=== PATIENT | male | born 1935 | race Caucasian/White ===

== ENCOUNTER 2021-03-08 00:36 | Inpatient (IN) | payer MEDICARE ==
[2021-03-08] MEDS ORDERED: Potassium Chloride 20 MEQ/100 ML PREMIX BAG ONE (01:26)
[2021-03-08 02:21] LABS: Albumin 3.7 g/dL (3.4-4.8)
[2021-03-08 02:22] LABS: Chloride 95 mmol/L (98-107); Sodium 136 mmol/L (136-145)
[2021-03-08 02:24] LABS: Globulin 2.8 g/dL (2.4-3.5); Protein, Total 6.5 g/dL (5.8-8.1)
[2021-03-08 02:25] LABS: Anion Gap 8 mmol/L (10-20); Bilirubin, Total 2.1 mg/dL (0.2-1.2); Carbon Dioxide 36 mmol/L (23-31)
[2021-03-08 02:26] LABS: Alkaline Phosphatase 95 U/L (40-110)
[2021-03-08 02:27] LABS: Calc. Creatinine Clearance 0 mL/min (70-130)
[2021-03-08 02:28] LABS: BUN (Urea Nitrogen) 18 mg/dL (8.4-25.7)
[2021-03-08 02:29] LABS: ALT (SGPT) 10 U/L (8-55); AST (SGOT) 24 U/L (5-34); Magnesium 1.2 mg/dL (1.6-2.6)
[2021-03-08 02:35] LABS: Glucose 211 mg/dL (83-110)
[2021-03-08 02:41] LABS: Calcium 14.7 mg/dL (7.8-10.44)
[2021-03-08] MEDS ORDERED: Acetaminophen 650 MG Suppository PR PRN (03:02)
[2021-03-08] MEDS ORDERED: Ondansetron PF 4 MG/2 ML Vial IVP PRN (03:02)
[2021-03-08] MEDS ORDERED: Magnesium 2 GM/50 ML BAG (IN WATER) ONE (03:09)
[2021-03-08 03:22] LABS: Band 5 % (5-11); Hemoglobin 15.3 g/dL (14.0-18.0); Lymphocytes 71 % (21-51); MDiff Complete? YES; Mean Corpuscular HGB CONC 34.1 g/dL (32.0-36.0); Mean Corpuscular Hemoglobin 30.4 pg (27.0-31.0); Mean Corpuscular Volume 89.3 fL (78.0-98.0); Mean Platelet Volume 12.4 fL (7.4-10.4); Monocytes 5 % (0-10); Neutrophil 19 % (42-75); Platelet Count 141 thou/uL (130-400); Red Blood Cell (RBC) Count 5.04 mill/uL (4.70-6.10); Reflex for Review?? YES; White Blood Cell (WBC) Count 44.5 thou/uL (4.8-10.8)
[2021-03-08] MEDS ORDERED: Sodium Chloride 0.9% 1,000 ML IV SCH (03:30)
[2021-03-08] MEDS ORDERED: Dextrose 5% in Water 1,000 ML IV PRN (03:52)
[2021-03-08] MEDS ORDERED: HumaLOG 300 UNITS/3 ML VIAL SC PRN (03:52)
[2021-03-08] MEDS ORDERED: Dextrose 50% Abboject 50 ML SYRINGE SLOW IVP PRN (03:52)
[2021-03-08] MEDS: Sodium Chloride 0.9% 1,000 ML IV SCH ×4 (03:56→20:29)
[2021-03-08] MEDS ORDERED: Calcitonin,Salmon,Synthetic 200 UNITS/ML MDV SC SCH (04:00)
[2021-03-08] MEDS ORDERED: Magnesium Sulfate 4 GM in Sodium Chloride 0.9% 250 ML 250 ML IVPB SCH (04:00)
[2021-03-08] MEDS ORDERED: Zoledronic Acid 4 MG in Sodium Chloride 0.9% 100 ML IVPB SCH (04:00)
[2021-03-08 04:30] LABS: ALT (SGPT) 11 U/L (8-55); AST (SGOT) 23 U/L (5-34); Albumin 3.5 g/dL (3.4-4.8); Alkaline Phosphatase 90 U/L (40-110); Anion Gap 10 mmol/L (10-20); BUN (Urea Nitrogen) 17 mg/dL (8.4-25.7); Calc. Creatinine Clearance 0 mL/min (70-130); Carbon Dioxide 30 mmol/L (23-31); Chloride 98 mmol/L (98-107); Globulin 2.7 g/dL (2.4-3.5); Glucose 209 mg/dL (83-110); Protein, Total 6.2 g/dL (5.8-8.1); Sodium 135 mmol/L (136-145)
[2021-03-08 04:38] LABS: Calcium 13.9 mg/dL (7.8-10.44)
[2021-03-08 04:53] LABS: Hemoglobin 14.8 g/dL (14.0-18.0); Mean Corpuscular HGB CONC 34.1 g/dL (32.0-36.0); Mean Corpuscular Hemoglobin 30.2 pg (27.0-31.0); Mean Corpuscular Volume 88.6 fL (78.0-98.0); Mean Platelet Volume 11.8 fL (7.4-10.4); Platelet Count 130 thou/uL (130-400); RBC Distribution Width 13.4 % (11.5-14.5); Red Blood Cell (RBC) Count 4.91 mill/uL (4.70-6.10); Reflex for Review?? YES; White Blood Cell (WBC) Count 47.5 thou/uL (4.8-10.8)
[2021-03-08 05:13] LABS: SARS-CoV-2 NAA Rapid Test Not Detected (NotDetected)
[2021-03-08] MEDS ORDERED: HumaLOG 300 UNITS/3 ML VIAL ONE (05:42)
[2021-03-08] MEDS: HumaLOG 300 UNITS/3 ML VIAL SC PRN ×2 (05:47→14:24)
[2021-03-08 06:13] LABS: Lymphocytes 58 % (21-51); MDiff Complete? YES; Monocytes 3 % (0-10); Neutrophil 39 % (42-75); Schistocytes MODERATE= 6-15 cells (100X) (0-1/hpf)
[2021-03-08 06:30] LABS: Anion Gap 12 mmol/L (10-20); BUN (Urea Nitrogen) 15 mg/dL (8.4-25.7); Calc. Creatinine Clearance 68 mL/min (70-130); Carbon Dioxide 29 mmol/L (23-31); Chloride 98 mmol/L (98-107); Glucose 216 mg/dL (83-110); Potassium 3.3 mmol/L (3.5-5.1); Sodium 136 mmol/L (136-145)
[2021-03-08 06:33] LABS: Calcium 13.5 mg/dL (7.8-10.44)
[2021-03-08] MEDS ORDERED: Senokot S 8.6-50 MG TAB PO PRN (07:21)
[2021-03-08] MEDS ORDERED: Ondansetron ODT 4 MG TAB PO PRN (07:21)
[2021-03-08] MEDS ORDERED: GUAIFENESIN SF SOLN 200 MG/10 ML UDCUP PO PRN (07:21)
[2021-03-08] MEDS ORDERED: Sodium Chloride 0.65% Nasal 44 ML BOT EA NARE PRN (07:21)
[2021-03-08] MEDS ORDERED: Bisacodyl 5 MG TAB PO PRN (07:21)
[2021-03-08] MEDS ORDERED: Artificial Tear Sol 15 ML BOT EA EYE PRN (07:21)
[2021-03-08] MEDS ORDERED: Hydrocerin (Eucerin) Cream 120 gm Jar TOP PRN (07:21)
[2021-03-08] MEDS ORDERED: Loratadine 10 MG TAB PO PRN (07:21)
[2021-03-08] MEDS ORDERED: Cepastat Lozenges 1 LOZ PO PRN (07:21)
[2021-03-08 08:26] LABS: Anion Gap 10 mmol/L (10-20); BUN (Urea Nitrogen) 15 mg/dL (8.4-25.7); Calc. Creatinine Clearance 68 mL/min (70-130); Carbon Dioxide 30 mmol/L (23-31); Chloride 99 mmol/L (98-107); Glucose 208 mg/dL (83-110); Potassium 3.1 mmol/L (3.5-5.1); Sodium 136 mmol/L (136-145)
[2021-03-08 08:32] LABS: Calcium 13.2 mg/dL (7.8-10.44)
[2021-03-08] MEDS: Pantoprazole 40 MG VIAL IVP SCH (09:00)
[2021-03-08] MEDS ORDERED: Pantoprazole 40 MG VIAL ONE (09:32)
[2021-03-08] MEDS ORDERED: Enoxaparin Sodium 40 MG/0.4 ML SYRINGE ONE (12:22)
[2021-03-08] MEDS: Enoxaparin Sodium 40 MG/0.4 ML SYRINGE SC SCH (12:24)
[2021-03-08] MEDS: Furosemide 20 MG/2 ML VIAL SLOW IVP SCH (14:14)
[2021-03-08] MEDS ORDERED: Furosemide 20 MG/2 ML VIAL ONE (14:15)
[2021-03-08] MEDS ORDERED: Melatonin 3 MG TAB PO SCH (23:30)
[2021-03-09] MEDS: Sodium Chloride 0.9% 1,000 ML IV SCH ×6 (01:42→22:06)
[2021-03-09 04:31] LABS: Magnesium 1.4 mg/dL (1.6-2.6)
[2021-03-09 04:33] LABS: ALT (SGPT) 11 U/L (8-55); AST (SGOT) 15 U/L (5-34); Albumin 3.4 g/dL (3.4-4.8); Alkaline Phosphatase 83 U/L (40-110); Anion Gap 10 mmol/L (10-20); BUN (Urea Nitrogen) 15 mg/dL (8.4-25.7); Calc. Creatinine Clearance 84 mL/min (70-130); Calcium 11.8 mg/dL (7.8-10.44); Carbon Dioxide 30 mmol/L (23-31); Chloride 101 mmol/L (98-107); Globulin 2.6 g/dL (2.4-3.5); Glucose 189 mg/dL (83-110); Sodium 138 mmol/L (136-145)
[2021-03-09 04:34] LABS: Hemoglobin 15.5 g/dL (14.0-18.0); Mean Corpuscular HGB CONC 32.5 g/dL (32.0-36.0); Mean Corpuscular Volume 89.1 fL (78.0-98.0); Mean Platelet Volume 11.8 fL (7.4-10.4); Platelet Count 130 thou/uL (130-400); RBC Distribution Width 13.2 % (11.5-14.5); Red Blood Cell (RBC) Count 5.36 mill/uL (4.70-6.10); White Blood Cell (WBC) Count 36.8 thou/uL (4.8-10.8)
[2021-03-09 04:39] LABS: Phosphorus 1.1 mg/dL (2.3-4.7)
[2021-03-09 04:40] LABS: Potassium 2.8 mmol/L (3.5-5.1)
[2021-03-09] MEDS ORDERED: Electrolyte Replacement Protocol 1 EACH FS PRN (05:15)
[2021-03-09] MEDS ORDERED: Potassium Chloride 40 MEQ in Sodium Chloride 0.9% 250 ML 250 ML IVPB SCH (05:15)
[2021-03-09 05:55] LABS: Band 2 % (5-11); Large Platelets SLIGHT; Lymphocytes 59 % (21-51); MDiff Complete? YES; Monocytes 1 % (0-10); Neutrophil 36 % (42-75); Platelet Morphology Comment Appears Adequate; Reactive Lymphocytes 2 % (0-10)
[2021-03-09] MEDS: Furosemide 20 MG/2 ML VIAL SLOW IVP SCH ×2 (06:03→14:09)
[2021-03-09] MEDS: Magnesium 2 GM/50 ML 2 GM in Premix Bag 1 BAG IVPB SCH ×2 (06:30→08:35)
[2021-03-09] MEDS ORDERED: Potassium Phosphate 30 MMOL in Sodium Chloride 0.9% 250 ML 250 ML IVPB SCH (08:00)
[2021-03-09] MEDS: Enoxaparin Sodium 40 MG/0.4 ML SYRINGE SC SCH (08:35)
[2021-03-09] MEDS: Pantoprazole 40 MG VIAL IVP SCH (08:35)
[2021-03-09 14:14] LABS: Magnesium 1.9 mg/dL (1.6-2.6); Phosphorus 2.3 mg/dL (2.3-4.7)
[2021-03-09 14:26] LABS: Potassium 3.3 mmol/L (3.5-5.1)
[2021-03-10 04:39] LABS: Hemoglobin 15.8 g/dL (14.0-18.0); Mean Corpuscular HGB CONC 32.3 g/dL (32.0-36.0); Mean Corpuscular Hemoglobin 28.9 pg (27.0-31.0); Mean Corpuscular Volume 89.5 fL (78.0-98.0); Mean Platelet Volume 11.9 fL (7.4-10.4); Platelet Count 120 thou/uL (130-400); RBC Distribution Width 13.3 % (11.5-14.5); Red Blood Cell (RBC) Count 5.48 mill/uL (4.70-6.10); White Blood Cell (WBC) Count 25.5 thou/uL (4.8-10.8)
[2021-03-10 05:09] LABS: Anion Gap 12 mmol/L (10-20); BUN (Urea Nitrogen) 14 mg/dL (8.4-25.7); Calc. Creatinine Clearance 88 mL/min (70-130); Carbon Dioxide 27 mmol/L (23-31); Chloride 104 mmol/L (98-107); Glucose 159 mg/dL (83-110); Potassium 2.9 mmol/L (3.5-5.1); Sodium 140 mmol/L (136-145)
[2021-03-10 05:10] LABS: ALT (SGPT) 10 U/L (8-55); AST (SGOT) 9 U/L (5-34); Alkaline Phosphatase 71 U/L (40-110); Calcium 9.9 mg/dL (7.8-10.44); Globulin 2.4 g/dL (2.4-3.5); Protein, Total 5.4 g/dL (5.8-8.1)
[2021-03-10 05:15] LABS: Magnesium 1.5 mg/dL (1.6-2.6); Phosphorus 1.3 mg/dL (2.3-4.7)
[2021-03-10] MEDS ORDERED: Potassium Chloride 40 MEQ in Sodium Chloride 0.9% 250 ML 250 ML IVPB SCH ×2 (05:15→05:30)
[2021-03-10] MEDS ORDERED: Magnesium 2 GM/50 ML 2 GM in Premix Bag 1 BAG IVPB SCH (05:30)
[2021-03-10] MEDS ORDERED: Potassium Phosphate 30 MMOL in Sodium Chloride 0.9% 250 ML 250 ML IVPB SCH (05:30)
[2021-03-10 05:53] LABS: MDiff Complete? YES
[2021-03-10] MEDS: Sodium Chloride 0.9% 1,000 ML IV SCH ×2 (05:53→14:16)
[2021-03-10 05:54] LABS: Band 3 % (5-11); Eosinophils 1 % (0-10); Lymphocytes 70 % (21-51); Monocytes 3 % (0-10); Neutrophil 21 % (42-75); Reactive Lymphocytes 1 % (0-10)
[2021-03-10] MEDS: Enoxaparin Sodium 40 MG/0.4 ML SYRINGE SC SCH (08:22)
[2021-03-10] MEDS: Pantoprazole 40 MG VIAL IVP SCH (08:22)
[2021-03-11] MEDS: HumaLOG 300 UNITS/3 ML VIAL SC PRN ×2 (06:14→16:46)
[2021-03-11 06:57] LABS: Hemoglobin 14.1 g/dL (14.0-18.0); Mean Corpuscular HGB CONC 33.8 g/dL (32.0-36.0); Mean Corpuscular Hemoglobin 29.8 pg (27.0-31.0); Mean Corpuscular Volume 88.2 fL (78.0-98.0); Mean Platelet Volume 11.1 fL (7.4-10.4); Platelet Count 118 thou/uL (130-400); RBC Distribution Width 12.9 % (11.5-14.5); Red Blood Cell (RBC) Count 4.72 mill/uL (4.70-6.10); White Blood Cell (WBC) Count 26.3 thou/uL (4.8-10.8)
[2021-03-11 07:16] LABS: Anion Gap 8 mmol/L (10-20); BUN (Urea Nitrogen) 15 mg/dL (8.4-25.7); Calc. Creatinine Clearance 101 mL/min (70-130); Calcium 9.1 mg/dL (7.8-10.44); Carbon Dioxide 28 mmol/L (23-31); Chloride 105 mmol/L (98-107); Glucose 159 mg/dL (83-110); Magnesium 1.6 mg/dL (1.6-2.6); Sodium 138 mmol/L (136-145)
[2021-03-11 07:21] LABS: Phosphorus 1.1 mg/dL (2.3-4.7); Potassium 2.6 mmol/L (3.5-5.1)
[2021-03-11 07:25] LABS: Lymphocytes 72 % (21-51); MDiff Complete? YES; Monocytes 3 % (0-10); Neutrophil 21 % (42-75); Platelet Morphology Comment Appears Decreased; RBC Morphology Normal; Reactive Lymphocytes 4 % (0-10)
[2021-03-11] MEDS ORDERED: Magnesium 2 GM/50 ML 2 GM in Premix Bag 1 BAG IVPB SCH (07:30)
[2021-03-11] MEDS ORDERED: Potassium Phosphate 22 MMOL in Sodium Chloride 0.9% 250 ML 250 ML IVPB SCH (07:45)
[2021-03-11] MEDS: Magnesium Oxide 400 MG TAB PO SCH ×2 (08:57→21:19)
[2021-03-11] MEDS: Sodium Chloride 0.9% 1,000 ML IV SCH (09:03)
[2021-03-11] MEDS: Potassium Chloride 40 MEQ in Sodium Chloride 0.9% 250 ML 250 ML IVPB SCH ×2 (09:23→13:30)
[2021-03-11] MEDS: K-Phos Neutral 250 MG TAB PO SCH ×2 (13:38→16:43)
[2021-03-11 19:30] LABS: Potassium 3.4 mmol/L (3.5-5.1)
[2021-03-11] MEDS: Metoprolol Tartrate 25 MG TAB PO SCH (21:19)
[2021-03-12] MEDS: HumaLOG 300 UNITS/3 ML VIAL SC PRN (05:58)
[2021-03-12 07:38] LABS: ALT (SGPT) 9 U/L (8-55); AST (SGOT) 7 U/L (5-34); Albumin 2.9 g/dL (3.4-4.8); Alkaline Phosphatase 70 U/L (40-110); Anion Gap 8 mmol/L (10-20); BUN (Urea Nitrogen) 11 mg/dL (8.4-25.7); Bilirubin, Total 1.2 mg/dL (0.2-1.2); Calc. Creatinine Clearance 100 mL/min (70-130); Calcium 8.8 mg/dL (7.8-10.44); Carbon Dioxide 27 mmol/L (23-31); Chloride 106 mmol/L (98-107); Globulin 2.2 g/dL (2.4-3.5); Glucose 158 mg/dL (83-110); Protein, Total 5.1 g/dL (5.8-8.1); Sodium 138 mmol/L (136-145)
[2021-03-12 07:41] LABS: Hemoglobin 13.5 g/dL (14.0-18.0); Mean Corpuscular HGB CONC 32.6 g/dL (32.0-36.0); Mean Corpuscular Hemoglobin 28.6 pg (27.0-31.0); Mean Corpuscular Volume 87.9 fL (78.0-98.0); Mean Platelet Volume 11.2 fL (7.4-10.4); Platelet Count 119 thou/uL (130-400); RBC Distribution Width 12.9 % (11.5-14.5); Red Blood Cell (RBC) Count 4.71 mill/uL (4.70-6.10)
[2021-03-12 07:42] LABS: Potassium 2.9 mmol/L (3.5-5.1)
[2021-03-12 07:44] LABS: Magnesium 1.5 mg/dL (1.6-2.6)
[2021-03-12 07:57] LABS: Phosphorus 1.3 mg/dL (2.3-4.7)
[2021-03-12] MEDS ORDERED: Magnesium 2 GM/50 ML 2 GM in Premix Bag 1 BAG IVPB SCH (08:00)
[2021-03-12] MEDS ORDERED: PHOS-NAK 1 PKT PACK PO SCH (08:00)
[2021-03-12] MEDS ORDERED: Sodium Phosphate 30 MMOL in Sodium Chloride 0.9% 250 ML 250 ML IVPB SCH (08:00)
[2021-03-12 08:06] LABS: Eosinophils 1 % (0-10); Lymphocytes 73 % (21-51); MDiff Complete? YES; Monocytes 1 % (0-10); Neutrophil 22 % (42-75); Platelet Morphology Comment Appears Decreased; RBC Morphology Normal; Reactive Lymphocytes 3 % (0-10)
[2021-03-12] MEDS: Potassium Chloride 20 MEQ TAB PO SCH ×2 (09:12→12:41)
[2021-03-12] MEDS: Metoprolol Tartrate 25 MG TAB PO SCH ×2 (09:12→21:01)
[2021-03-12] MEDS: K-Phos Neutral 250 MG TAB PO SCH ×3 (09:12→16:40)
[2021-03-12] MEDS: Magnesium Oxide 400 MG TAB PO SCH ×2 (09:12→21:02)
[2021-03-12] MEDS: PHOS-NAK 1 PKT PACK PO SCH ×3 (12:41→20:50)
[2021-03-12] MEDS: Acetaminophen 325 MG TAB PO PRN (12:41)
[2021-03-13] MEDS: PHOS-NAK 1 PKT PACK PO SCH
[2021-03-13 07:47] LABS: Anion Gap 10 mmol/L (10-20); BUN (Urea Nitrogen) 11 mg/dL (8.4-25.7); Calc. Creatinine Clearance 98 mL/min (70-130); Calcium 8.6 mg/dL (7.8-10.44); Carbon Dioxide 26 mmol/L (23-31); Chloride 109 mmol/L (98-107); Glucose 152 mg/dL (83-110); Magnesium 1.6 mg/dL (1.6-2.6); Phosphorus 2.2 mg/dL (2.3-4.7); Potassium 3.6 mmol/L (3.5-5.1); Sodium 141 mmol/L (136-145)
[2021-03-13] MEDS ORDERED: Magnesium 2 GM/50 ML 2 GM in Premix Bag 1 BAG IVPB SCH (08:00)
[2021-03-13] MEDS: Loperamide HCl 2 MG CAP PO PRN (09:00)
[2021-03-13] MEDS: Metoprolol Tartrate 25 MG TAB PO SCH ×2 (09:01→20:09)
[2021-03-13] MEDS: Magnesium Oxide 400 MG TAB PO SCH ×2 (09:01→20:09)
[2021-03-13] MEDS: K-Phos Neutral 250 MG TAB PO SCH ×3 (09:01→17:22)
[2021-03-13] MEDS: Acetaminophen 325 MG TAB PO PRN (15:38)
[2021-03-14] MEDS: K-Phos Neutral 250 MG TAB PO SCH ×4 (08:20→16:51)
[2021-03-14] MEDS: Magnesium Oxide 400 MG TAB PO SCH ×2 (08:20→20:44)
[2021-03-14 08:26] LABS: Phosphorus 2.3 mg/dL (2.3-4.7)
[2021-03-14 08:29] LABS: ALT (SGPT) 7 U/L (8-55); AST (SGOT) 10 U/L (5-34); Albumin 3.1 g/dL (3.4-4.8); Alkaline Phosphatase 71 U/L (40-110); Anion Gap 9 mmol/L (10-20); BUN (Urea Nitrogen) 8 mg/dL (8.4-25.7); Bilirubin, Total 1.3 mg/dL (0.2-1.2); Calc. Creatinine Clearance 102 mL/min (70-130); Calcium 8.6 mg/dL (7.8-10.44); Carbon Dioxide 25 mmol/L (23-31); Chloride 108 mmol/L (98-107); Globulin 2.3 g/dL (2.4-3.5); Glucose 121 mg/dL (83-110); Magnesium 1.6 mg/dL (1.6-2.6); Potassium 3.1 mmol/L (3.5-5.1); Protein, Total 5.4 g/dL (5.8-8.1); Sodium 139 mmol/L (136-145)
[2021-03-14 09:24] LABS: Hemoglobin 13.2 g/dL (14.0-18.0); Mean Corpuscular HGB CONC 33.4 g/dL (32.0-36.0); Mean Corpuscular Hemoglobin 29.4 pg (27.0-31.0); Mean Platelet Volume 11.3 fL (7.4-10.4); Platelet Count 118 thou/uL (130-400); Red Blood Cell (RBC) Count 4.48 mill/uL (4.70-6.10); White Blood Cell (WBC) Count 34.6 thou/uL (4.8-10.8)
[2021-03-14] MEDS: Metoprolol Tartrate 25 MG TAB PO SCH ×2 (09:24→20:44)
[2021-03-14 09:38] LABS: Eosinophils 1 % (0-10); Lymphocytes 70 % (21-51); MDiff Complete? YES; Monocytes 5 % (0-10); Neutrophil 23 % (42-75); Platelet Morphology Comment Appears Decreased; RBC Morphology Normal
[2021-03-14] MEDS ORDERED: Lidocaine 1% w/Epinephrine 1:100K 20 ML VIAL ONE (09:49)
[2021-03-14] MEDS ORDERED: Bacitracin Zinc Ointment 30 gm TUBE ONE (09:49)
[2021-03-14] MEDS ORDERED: SUGAMMADEX SODIUM 200 MG/2 ML VIAL ONE (09:55)
[2021-03-14] MEDS ORDERED: Fentanyl 100 MCG/2 ML VIAL ONE (09:55)
[2021-03-14] MEDS ORDERED: Magnesium 2 GM/50 ML 2 GM in Premix Bag 1 BAG IVPB SCH ×2 (10:00→10:45)
[2021-03-14] MEDS ORDERED: Potassium Chloride 20 MEQ TAB PO SCH ×3 (10:00→18:45)
[2021-03-14] MEDS ORDERED: Lidocaine 2% PF 5 ML VIAL ONE (10:29)
[2021-03-14] MEDS ORDERED: PROPOFOL 200 MG/20 ML VIAL ONE (10:29)
[2021-03-14] MEDS ORDERED: Rocuronium Bromide 10 MG/ML (10ML VIAL) ONE (10:29)
[2021-03-14] MEDS ORDERED: Ondansetron PF 4 MG/2 ML Vial ONE (10:29)
[2021-03-14] MEDS ORDERED: Calcium Gluc 4.6 MEQ/10 ML (100 MG/ML) SLOW IVP PRN (14:16)
[2021-03-14] MEDS ORDERED: Calcitriol 0.25 MCG CAP PO SCH (14:30)
[2021-03-14 14:47] LABS: Magnesium 1.5 mg/dL (1.6-2.6)
[2021-03-14 14:50] LABS: Calcium 8.9 mg/dL (7.8-10.44)
[2021-03-14 15:06] LABS: Anion Gap 11 mmol/L (10-20); BUN (Urea Nitrogen) 9 mg/dL (8.4-25.7); Calc. Creatinine Clearance 92 mL/min (70-130); Calcium 8.7 mg/dL (7.8-10.44); Carbon Dioxide 25 mmol/L (23-31); Chloride 107 mmol/L (98-107); Glucose 121 mg/dL (83-110); Potassium 3.3 mmol/L (3.5-5.1); Sodium 140 mmol/L (136-145)
[2021-03-14 15:22] LABS: Phosphorus 2.8 mg/dL (2.3-4.7)
[2021-03-14] MEDS: Calcium Carbonate 500 MG ChewTAB PO SCH ×3 (16:40→20:44)
[2021-03-14] MEDS ORDERED: Electrolyte Replacement Protocol 1 EACH FS SCH (18:30)
[2021-03-14] MEDS ORDERED: Magnesium Sulfate 3 GM in Sodium Chloride 0.9% 100 ML IVPB SCH (18:30)
[2021-03-14 20:33] LABS: Anion Gap 11 mmol/L (10-20); BUN (Urea Nitrogen) 11 mg/dL (8.4-25.7); Calc. Creatinine Clearance 88 mL/min (70-130); Calcium 8.7 mg/dL (7.8-10.44); Carbon Dioxide 24 mmol/L (23-31); Chloride 107 mmol/L (98-107); Glucose 199 mg/dL (83-110); Magnesium 1.8 mg/dL (1.6-2.6); Phosphorus 2.9 mg/dL (2.3-4.7); Potassium 3.4 mmol/L (3.5-5.1); Sodium 139 mmol/L (136-145)
[2021-03-15] MEDS: Metoprolol Tartrate 25 MG TAB PO SCH ×2 (08:12→20:21)
[2021-03-15] MEDS: Magnesium Oxide 400 MG TAB PO SCH ×2 (08:12→20:21)
[2021-03-15] MEDS: Calcium Carbonate 500 MG ChewTAB PO SCH ×4 (08:12→20:21)
[2021-03-15] MEDS: K-Phos Neutral 250 MG TAB PO SCH ×3 (08:12→16:51)
[2021-03-15] MEDS: Calcitriol 0.25 MCG CAP PO SCH (08:12)
[2021-03-15 08:48] LABS: Anion Gap 11 mmol/L (10-20); BUN (Urea Nitrogen) 11 mg/dL (8.4-25.7); Calc. Creatinine Clearance 85 mL/min (70-130); Calcium 7.7 mg/dL (7.8-10.44); Carbon Dioxide 25 mmol/L (23-31); Chloride 106 mmol/L (98-107); Glucose 117 mg/dL (83-110); Magnesium 1.5 mg/dL (1.6-2.6); Phosphorus 2.8 mg/dL (2.3-4.7); Potassium 3.5 mmol/L (3.5-5.1); Sodium 138 mmol/L (136-145)
[2021-03-15] MEDS ORDERED: Magnesium 2 GM/50 ML 2 GM in Premix Bag 1 BAG IVPB SCH (10:00)
[2021-03-15] MEDS ORDERED: Potassium Chloride 20 MEQ TAB PO SCH (10:00)
[2021-03-15] MEDS ORDERED: Magnesium 2 GM/50 ML 3 GM in Premix Bag 1 BAG IVPB SCH (10:29)
[2021-03-15] MEDS ORDERED: Calcium Gluconate 100 MG/ML 10 ML IVPB SCH (10:30)
[2021-03-15] MEDS ORDERED: Magnesium Sulfate 3 GM in Sodium Chloride 0.9% 100 ML IVPB SCH (12:00)
[2021-03-15] MEDS ORDERED: Calcium Gluconate 9.2 MEQ in Sodium Chloride 0.9% 100 ML IVPB SCH (12:00)
[2021-03-15 12:57] LABS: SARS-CoV-2 PCR by NAA Not Detected (NotDetected)
[2021-03-15 15:43] LABS: Anion Gap 12 mmol/L (10-20); BUN (Urea Nitrogen) 12 mg/dL (8.4-25.7); Calc. Creatinine Clearance 84 mL/min (70-130); Carbon Dioxide 24 mmol/L (23-31); Chloride 105 mmol/L (98-107); Glucose 239 mg/dL (83-110); Magnesium 2.2 mg/dL (1.6-2.6); Potassium 3.8 mmol/L (3.5-5.1); Sodium 137 mmol/L (136-145)
[2021-03-15] MEDS: HumaLOG 300 UNITS/3 ML VIAL SC PRN (16:52)
[2021-03-16] MEDS: Acetaminophen 325 MG TAB PO PRN ×2 (04:53→15:48)
[2021-03-16] MEDS: Calcium Carbonate 500 MG ChewTAB PO SCH ×4 (07:46→21:57)
[2021-03-16] MEDS: Magnesium Oxide 400 MG TAB PO SCH ×2 (07:46→21:57)
[2021-03-16] MEDS: Calcitriol 0.25 MCG CAP PO SCH (07:46)
[2021-03-16] MEDS: Metoprolol Tartrate 25 MG TAB PO SCH ×2 (07:47→21:58)
[2021-03-16 08:33] LABS: Hemoglobin 12.2 g/dL (14.0-18.0); Mean Corpuscular HGB CONC 32.7 g/dL (32.0-36.0); Mean Corpuscular Hemoglobin 28.2 pg (27.0-31.0); Mean Corpuscular Volume 86.4 fL (78.0-98.0); Mean Platelet Volume 11.3 fL (7.4-10.4); Platelet Count 125 thou/uL (130-400); Red Blood Cell (RBC) Count 4.32 mill/uL (4.70-6.10); White Blood Cell (WBC) Count 32.9 thou/uL (4.8-10.8)
[2021-03-16 08:56] LABS: Anion Gap 10 mmol/L (10-20); BUN (Urea Nitrogen) 10 mg/dL (8.4-25.7); Calc. Creatinine Clearance 91 mL/min (70-130); Calcium 7.3 mg/dL (7.8-10.44); Carbon Dioxide 27 mmol/L (23-31); Chloride 104 mmol/L (98-107); Glucose 121 mg/dL (83-110); Magnesium 1.7 mg/dL (1.6-2.6); Phosphorus 3.6 mg/dL (2.3-4.7); Potassium 3.4 mmol/L (3.5-5.1); Sodium 138 mmol/L (136-145)
[2021-03-16] MEDS ORDERED: Magnesium 2 GM/50 ML 2 GM in Premix Bag 1 BAG IVPB SCH (09:15)
[2021-03-16] MEDS ORDERED: Potassium Chloride 20 MEQ TAB PO SCH (09:15)
[2021-03-16] MEDS: K-Phos Neutral 250 MG TAB PO SCH ×3 (09:23→15:46)
[2021-03-16 11:15] LABS: Eosinophils 1 % (0-10); Large Platelets SLIGHT; Lymphocytes 80 % (21-51); MDiff Complete? YES; Monocytes 2 % (0-10); Neutrophil 16 % (42-75); Platelet Morphology Comment Appears Decreased
[2021-03-16] MEDS: HumaLOG 300 UNITS/3 ML VIAL SC PRN (16:44)
[2021-03-17 07:05] LABS: ALT (SGPT) Less than 7 U/L (8-55); AST (SGOT) 9 U/L (5-34); Albumin 3.2 g/dL (3.4-4.8); Alkaline Phosphatase 89 U/L (40-110); Anion Gap 13 mmol/L (10-20); BUN (Urea Nitrogen) 8 mg/dL (8.4-25.7); Bilirubin, Total 1.1 mg/dL (0.2-1.2); Calc. Creatinine Clearance 97 mL/min (70-130); Calcium 7.3 mg/dL (7.8-10.44); Carbon Dioxide 27 mmol/L (23-31); Chloride 104 mmol/L (98-107); Globulin 2.6 g/dL (2.4-3.5); Glucose 118 mg/dL (83-110); Potassium 3.9 mmol/L (3.5-5.1); Protein, Total 5.8 g/dL (5.8-8.1); Sodium 140 mmol/L (136-145)
[2021-03-17] MEDS: Calcium Carbonate 500 MG ChewTAB PO SCH ×4 (08:02→20:53)
[2021-03-17] MEDS: Magnesium Oxide 400 MG TAB PO SCH ×2 (08:02→20:53)
[2021-03-17] MEDS: Calcitriol 0.25 MCG CAP PO SCH (08:02)
[2021-03-17] MEDS: Metoprolol Tartrate 25 MG TAB PO SCH ×2 (08:02→20:53)
[2021-03-17] MEDS: K-Phos Neutral 250 MG TAB PO SCH ×3 (08:02→15:43)
[2021-03-17] MEDS: Acetaminophen 325 MG TAB PO PRN (15:47)
[2021-03-17] MEDS: Loperamide HCl 2 MG CAP PO PRN ×2 (15:47→20:53)
[2021-03-17] MEDS ORDERED: Loratadine 10 MG TAB PO PRN (21:59)
[2021-03-18] MEDS: Acetaminophen 325 MG TAB PO PRN (00:45)
[2021-03-18 07:17] LABS: Anion Gap 10 mmol/L (10-20); BUN (Urea Nitrogen) 5 mg/dL (8.4-25.7); Calc. Creatinine Clearance 107 mL/min (70-130); Calcium 6.8 mg/dL (7.8-10.44); Carbon Dioxide 30 mmol/L (23-31); Chloride 105 mmol/L (98-107); Glucose 113 mg/dL (83-110); Magnesium 1.5 mg/dL (1.6-2.6); Phosphorus 3.5 mg/dL (2.3-4.7); Potassium 3.2 mmol/L (3.5-5.1); Sodium 142 mmol/L (136-145)
[2021-03-18] MEDS ORDERED: Magnesium 2 GM/50 ML 2 GM in Premix Bag 1 BAG IVPB SCH ×3 (08:00→22:00)
[2021-03-18] MEDS ORDERED: Potassium Chloride 20 MEQ TAB PO SCH ×2 (08:00→13:00)
[2021-03-18] MEDS ORDERED: Calcitriol 0.25 MCG CAP PO SCH ×2 (09:00→11:30)
[2021-03-18] MEDS ORDERED: Calcium Carbonate 500 MG ChewTAB PO SCH ×2 (09:00→11:30)
[2021-03-18] MEDS: K-Phos Neutral 250 MG TAB PO SCH ×3 (09:15→17:20)
[2021-03-18] MEDS: Magnesium Oxide 400 MG TAB PO SCH ×2 (09:20→21:10)
[2021-03-18] MEDS: Calcitriol 0.25 MCG CAP PO SCH (09:20)
[2021-03-18] MEDS: Metoprolol Tartrate 25 MG TAB PO SCH ×2 (09:21→21:09)
[2021-03-18] MEDS: Calcium Carbonate 500 MG ChewTAB PO SCH ×4 (09:21→21:11)
[2021-03-18] MEDS ORDERED: Calcium Gluc 4.6 MEQ/10 ML (100 MG/ML) SLOW IVP SCH (10:44)
[2021-03-18] MEDS ORDERED: Simethicone Chewable 80 MG TAB PO PRN (17:36)
[2021-03-18 18:04] LABS: Magnesium 1.8 mg/dL (1.6-2.6); Potassium 4.8 mmol/L (3.5-5.1)
[2021-03-19 07:28] LABS: Hemoglobin 12.6 g/dL (14.0-18.0); Mean Corpuscular HGB CONC 33.5 g/dL (32.0-36.0); Mean Corpuscular Hemoglobin 29.3 pg (27.0-31.0); Mean Corpuscular Volume 87.5 fL (78.0-98.0); Mean Platelet Volume 10.6 fL (7.4-10.4); Platelet Count 157 thou/uL (130-400); White Blood Cell (WBC) Count 41.4 thou/uL (4.8-10.8)
[2021-03-19 07:29] LABS: Albumin 3.1 g/dL (3.4-4.8); Anion Gap 12 mmol/L (10-20); BUN (Urea Nitrogen) 5 mg/dL (8.4-25.7); Calc. Creatinine Clearance 0 mL/min (70-130); Calcium 7.2 mg/dL (7.8-10.44); Carbon Dioxide 27 mmol/L (23-31); Chloride 102 mmol/L (98-107); Glucose 117 mg/dL (83-110); Magnesium 1.9 mg/dL (1.6-2.6); Potassium 3.6 mmol/L (3.5-5.1); Sodium 137 mmol/L (136-145)
[2021-03-19] MEDS ORDERED: Magnesium 2 GM/50 ML 2 GM in Premix Bag 1 BAG IVPB SCH (07:45)
[2021-03-19] MEDS: Calcium Carbonate 500 MG ChewTAB PO SCH ×4 (08:02→20:21)
[2021-03-19] MEDS: Magnesium Oxide 400 MG TAB PO SCH ×2 (08:03→20:17)
[2021-03-19] MEDS: K-Phos Neutral 250 MG TAB PO SCH ×3 (08:04→18:00)
[2021-03-19] MEDS: Calcitriol 0.25 MCG CAP PO SCH (08:04)
[2021-03-19] MEDS: Metoprolol Tartrate 25 MG TAB PO SCH ×2 (08:05→20:17)
[2021-03-19 08:46] LABS: Eosinophils 1 % (0-10); Lymphocytes 81 % (21-51); MDiff Complete? YES; Monocytes 8 % (0-10); Neutrophil 10 % (42-75); Ovalocytes SLIGHT = 2-5 cells (100X) (0-1/hpf); Platelet Morphology Comment Appears Adequate; Polychromasia SLIGHT = 2-3 cells (100X) (0-2/hpf)
[2021-03-19] MEDS ORDERED: Calcium Gluconate 9.2 MEQ in Sodium Chloride 0.9% 100 ML IVPB SCH (10:00)
[2021-03-20 07:51] LABS: Anion Gap 10 mmol/L (10-20); BUN (Urea Nitrogen) 6 mg/dL (8.4-25.7); Calc. Creatinine Clearance 97 mL/min (70-130); Calcium 7.5 mg/dL (7.8-10.44); Carbon Dioxide 28 mmol/L (23-31); Chloride 105 mmol/L (98-107); Glucose 130 mg/dL (83-110); Magnesium 1.7 mg/dL (1.6-2.6); Phosphorus 3.2 mg/dL (2.3-4.7); Potassium 3.6 mmol/L (3.5-5.1); Sodium 139 mmol/L (136-145)
[2021-03-20 07:57] LABS: Hemoglobin 12.7 g/dL (14.0-18.0); Mean Corpuscular HGB CONC 33.3 g/dL (32.0-36.0); Mean Corpuscular Hemoglobin 29.2 pg (27.0-31.0); Mean Corpuscular Volume 87.8 fL (78.0-98.0); Mean Platelet Volume 10.5 fL (7.4-10.4); Platelet Count 199 thou/uL (130-400); RBC Distribution Width 12.8 % (11.5-14.5); Red Blood Cell (RBC) Count 4.33 mill/uL (4.70-6.10); White Blood Cell (WBC) Count 44.6 thou/uL (4.8-10.8)
[2021-03-20 08:08] LABS: Lymphocytes 88 % (21-51); MDiff Complete? YES; Monocytes 2 % (0-10); Neutrophil 10 % (42-75); Platelet Morphology Comment Appears Adequate; RBC Morphology Normal
[2021-03-20] MEDS: Calcitriol 0.25 MCG CAP PO SCH (08:15)
[2021-03-20] MEDS ORDERED: Magnesium 2 GM/50 ML 2 GM in Premix Bag 1 BAG IVPB SCH (08:15)
[2021-03-20] MEDS: Calcium Carbonate 500 MG ChewTAB PO SCH ×4 (08:15→21:25)
[2021-03-20] MEDS: Magnesium Oxide 400 MG TAB PO SCH ×2 (08:16→21:23)
[2021-03-20] MEDS: Metoprolol Tartrate 25 MG TAB PO SCH ×2 (08:16→21:24)
[2021-03-20] MEDS: K-Phos Neutral 250 MG TAB PO SCH ×3 (08:17→17:34)
[2021-03-21] MEDS: Loperamide HCl 2 MG CAP PO PRN (00:40)
[2021-03-21 07:12] LABS: Mean Corpuscular HGB CONC 34.3 g/dL (32.0-36.0); Mean Corpuscular Hemoglobin 29.9 pg (27.0-31.0); Mean Platelet Volume 10.5 fL (7.4-10.4); Platelet Count 221 thou/uL (130-400); RBC Distribution Width 12.8 % (11.5-14.5); Red Blood Cell (RBC) Count 4.35 mill/uL (4.70-6.10); White Blood Cell (WBC) Count 45.7 thou/uL (4.8-10.8)
[2021-03-21 07:25] LABS: Albumin 3.3 g/dL (3.4-4.8); Anion Gap 11 mmol/L (10-20); BUN (Urea Nitrogen) 6 mg/dL (8.4-25.7); Calc. Creatinine Clearance 0 mL/min (70-130); Carbon Dioxide 28 mmol/L (23-31); Chloride 105 mmol/L (98-107); Glucose 115 mg/dL (83-110); Magnesium 1.7 mg/dL (1.6-2.6); Phosphorus 3.6 mg/dL (2.3-4.7); Potassium 3.9 mmol/L (3.5-5.1); Sodium 140 mmol/L (136-145)
[2021-03-21 08:02] VITALS: BP 146/85; TEMP 98.1
[2021-03-21 08:30] LABS: Band 2 % (5-11); Eosinophils 2 % (0-10); Lymphocytes 80 % (21-51); MDiff Complete? YES; Monocytes 5 % (0-10); Neutrophil 11 % (42-75); Platelet Morphology Comment Appears Adequate; RBC Morphology Normal
[2021-03-21] MEDS: Calcium Carbonate 500 MG ChewTAB PO SCH ×2 (08:35→12:53)
[2021-03-21] MEDS: Metoprolol Tartrate 25 MG TAB PO SCH (08:36)
[2021-03-21] MEDS: Calcitriol 0.25 MCG CAP PO SCH (08:36)
[2021-03-21] MEDS: Magnesium Oxide 400 MG TAB PO SCH (08:36)
[2021-03-21] MEDS: K-Phos Neutral 250 MG TAB PO SCH ×2 (08:37→12:53)
[2021-03-21] MEDS ORDERED: Magnesium Sulfate 3 GM in Sodium Chloride 0.9% 100 ML IVPB SCH (10:00)
[2021-03-21] MEDS ORDERED: Magnesium Oxide 400 MG TAB PO SCH (21:00)
== END 2021-03-21 17:14 | DRG 625 ==
LOC: EDSEX 00:36 → ERS 00:36 → ERHOLD 02:55 → IMCU/EMU 15:52 → T4-B 03-10 11:16
PROVIDERS: ADMIT Internal Medicine; ATTEND Internal Medicine
PROC: 0GBR0ZZ Excision of Parathyroid Gland, Open Approach (ICD-10-PCS; principal; 2021-03-14)
DX: D35.1 Benign neoplasm of parathyroid gland (principal); G93.41 Metabolic encephalopathy; J86.0 Pyothorax with fistula; D47.1 Chronic myeloproliferative disease; C91.10 Chronic lymphocytic leukemia of B-cell type not having achieved remission; N17.9 Acute kidney failure, unspecified; E87.1 Hypo-osmolality and hyponatremia; E21.0 Primary hyperparathyroidism; Z20.822 Contact with and (suspected) exposure to COVID-19; E87.6 Hypokalemia; E78.5 Hyperlipidemia, unspecified; N40.0 Benign prostatic hyperplasia without lower urinary tract symptoms; I48.91 Unspecified atrial fibrillation; E55.9 Vitamin D deficiency, unspecified; N18.9 Chronic kidney disease, unspecified; I12.9 Hypertensive chronic kidney disease with stage 1 through stage 4 chronic kidney disease, or unspecified chronic kidney disease; E11.22 Type 2 diabetes mellitus with diabetic chronic kidney disease
CPT/HCPCS: 36415; 36416; 70491; 70492; 71045; 78072; 80048; 80053; 82040; 82306; 82330; 83735; 83970; 84100; 84443; 85025; 85060; 87086; 88305; 93005; 93010; 96372; 96374; 96375; A9500; C9113; J0630; J1650; J1815; J1940; J2001; J2405; J2704; J3010; J3475; J3480; J3490; J7050; U0002; U0003; U0005

== ENCOUNTER 2023-11-19 18:15 | Inpatient (IN) | payer MEDICARE ==
[2023-11-19] MEDS ORDERED: Ondansetron PF 4 MG/2 ML Vial IVP PRN (19:42)
[2023-11-19] MEDS ORDERED: Glucagon 1 MG/ML KIT IM PRN (19:48)
[2023-11-19] MEDS ORDERED: Dextrose 5% in Water 1,000 ML IV PRN (19:48)
[2023-11-19] MEDS ORDERED: HumaLOG 300 UNITS/3 ML VIAL SC PRN ×2 (19:48)
[2023-11-19] MEDS ORDERED: Dextrose 50% Abboject 50 ML SYRINGE SLOW IVP PRN (19:48)
[2023-11-19 20:20] LABS: #Basophils 0.03 10x3/uL (0.0-0.2); %Basophils 0.1 % (0.0-1.0); %Eosinophils 0.2 % (0.0-10.0); %Lymphocytes 13.4 % (21.0-51.0); %Monocytes 6.7 % (0.0-10.0); %Neutrophils 78.6 % (42.0-75.0); Hematocrit 29.2 % (42.0-52.0); Hemoglobin 9.2 g/dL (14.0-18.0); Mean Corpuscular HGB CONC 31.5 g/dL (32.0-36.0); Mean Corpuscular Hemoglobin 24.9 pg (27.0-31.0); Mean Corpuscular Volume 78.9 fL (78.0-98.0); Mean Platelet Volume 9.5 fL (7.4-10.4); Platelet Count 370 10x3/uL (130-400); RBC Distribution Width 17.5 % (11.5-14.5)
[2023-11-19 20:44] LABS: ALT (SGPT) 6 U/L (8-55); AST (SGOT) 12 U/L (5-34); Albumin 1.8 g/dL (3.4-4.8); Alkaline Phosphatase 78 U/L (40-110); Anion Gap 9 mmol/L (10-20); BUN (Urea Nitrogen) 14 mg/dL (8.4-25.7); Bilirubin, Total 0.6 mg/dL (0.2-1.2); Calc. Creatinine Clearance 0 mL/min (70-130); Calcium 7.6 mg/dL (7.8-10.44); Carbon Dioxide 34 mmol/L (23-31); Chloride 92 mmol/L (98-107); Estimated GFR 94; Globulin 4.2 g/dL (2.4-3.5); Glucose 173 mg/dL (83-110); Magnesium 1.8 mg/dL (1.6-2.6); Sodium 132 mmol/L (136-145)
[2023-11-19] MEDS: cefTRIAXone\\ROCEPHIN 1 GM in Sodium Chloride 0.9% 100 ML IVPB SCH (20:45)
[2023-11-19] MEDS: Heparin 5,000 UNITS/ML VIAL SC SCH (21:30)
[2023-11-19] MEDS ORDERED: Potassium Bicarbonate/Cit Ac 20 MEQ TAB PO SCH (21:45)
[2023-11-19] MEDS ORDERED: Magnesium Sulfate 2 GM in Sodium Chloride 0.9% 100 ML IVPB SCH (21:45)
[2023-11-19] MEDS ORDERED: Potassium Chloride 40 MEQ in Premix 1 BAG IVPB SCH (21:45)
[2023-11-20] MEDS: Potassium Bicarbonate/Cit Ac 20 MEQ TAB PO SCH ×2 (00:15→08:21)
[2023-11-20] MEDS: Magnesium 2 GM/50 ML(in water) 2 GM in Premix 1 BAG IVPB SCH (00:15)
[2023-11-20] MEDS: Potassium Chloride 20 MEQ in Premix 1 BAG IVPB SCH (00:16)
[2023-11-20 03:46] LABS: Bacteria/HPF 2+ HPF (None Seen); Bilirubin Negative (Negative); Blood, Urine Trace (Negative); CAUTI Indications for Culture Alt mental st,lethar; Clarity Turbid (Clear); Glucose, Urine (Dipstick) 500 mg/dL (Negative); Ketone, Urine Negative (Negative); Leukocyte 500 Leu/uL (Negative); Nitrite Negative (Negative); Protein, Urine (Dipstick) 70 mg/dL (Neg-Trace); Specific Gravity, Urine 1.025 (1.002-1.036); Urobilinogen Normal mg/dL (Less than 2); WBC/HPF 21-50 HPF (0-3); Yeast-Budding 1+ HPF (None Seen)
[2023-11-20 04:27] LABS: #Basophils 0.04 10x3/uL (0.0-0.2); %Basophils 0.2 % (0.0-1.0); %Eosinophils 0.9 % (0.0-10.0); %Lymphocytes 15.3 % (21.0-51.0); %Neutrophils 74.7 % (42.0-75.0); Hematocrit 25.4 % (42.0-52.0); Hemoglobin 7.9 g/dL (14.0-18.0); Mean Corpuscular HGB CONC 31.1 g/dL (32.0-36.0); Mean Corpuscular Hemoglobin 24.8 pg (27.0-31.0); Mean Corpuscular Volume 79.6 fL (78.0-98.0); Mean Platelet Volume 9.3 fL (7.4-10.4); Platelet Count 329 10x3/uL (130-400); RBC Distribution Width 17.5 % (11.5-14.5); Red Blood Cell (RBC) Count 3.19 mill/uL (4.70-6.10)
[2023-11-20 04:48] LABS: Anion Gap 10 mmol/L (10-20); BUN (Urea Nitrogen) 12 mg/dL (8.4-25.7); Calc. Creatinine Clearance 117 mL/min (70-130); Calcium 7.6 mg/dL (7.8-10.44); Carbon Dioxide 33 mmol/L (23-31); Chloride 92 mmol/L (98-107); Estimated GFR 97; Glucose 120 mg/dL (83-110); Magnesium 2.1 mg/dL (1.6-2.6); Potassium 3.1 mmol/L (3.5-5.1); Sodium 132 mmol/L (136-145)
[2023-11-20] MEDS: Polyethylene Glycol 3350 17 GM Packet PO SCH (08:21)
[2023-11-20] MEDS: Lisinopril 5 MG TAB PO SCH (08:21)
[2023-11-20] MEDS: Pantoprazole DR 40 MG TAB PO SCH (08:21)
[2023-11-20] MEDS: Carvedilol 3.125 MG TAB PO SCH (08:21)
[2023-11-20] MEDS: Senokot S 8.6-50 MG TAB PO SCH (08:22)
[2023-11-20] MEDS: guaiFENesin/DM ER PO SCH (20:38)
[2023-11-21 04:50] LABS: #Basophils 0.04 10x3/uL (0.0-0.2); %Basophils 0.3 % (0.0-1.0); %Eosinophils 1.6 % (0.0-10.0); %Lymphocytes 17.7 % (21.0-51.0); %Monocytes 10.7 % (0.0-10.0); Hematocrit 25.7 % (42.0-52.0); Hemoglobin 7.9 g/dL (14.0-18.0); Mean Corpuscular HGB CONC 30.7 g/dL (32.0-36.0); Mean Corpuscular Volume 81.3 fL (78.0-98.0); Mean Platelet Volume 9.7 fL (7.4-10.4); Platelet Count 314 10x3/uL (130-400); RBC Distribution Width 17.6 % (11.5-14.5); Red Blood Cell (RBC) Count 3.16 mill/uL (4.70-6.10)
[2023-11-21 05:02] LABS: Anion Gap 8 mmol/L (10-20); BUN (Urea Nitrogen) 12 mg/dL (8.4-25.7); Calc. Creatinine Clearance 112 mL/min (70-130); Calcium 7.5 mg/dL (7.8-10.44); Carbon Dioxide 38 mmol/L (23-31); Chloride 91 mmol/L (98-107); Estimated GFR 96; Glucose 122 mg/dL (83-110); Magnesium 1.9 mg/dL (1.6-2.6); Potassium 3.7 mmol/L (3.5-5.1); Sodium 133 mmol/L (136-145)
[2023-11-21] MEDS: HYDROcodone/Acetaminophen 10/325 mg Tablet PO PRN (09:48)
[2023-11-21] MEDS: Acetaminophen 325 MG TAB PO PRN (20:37)
[2023-11-21] MEDS: Lisinopril 5 MG TAB PO SCH (20:37)
[2023-11-21] MEDS: Carvedilol 6.25 MG TAB PO SCH (20:38)
[2023-11-22 05:15] LABS: #Basophils 0.04 10x3/uL (0.0-0.2); %Basophils 0.4 % (0.0-1.0); %Eosinophils 2.6 % (0.0-10.0); %Lymphocytes 18.2 % (21.0-51.0); Hematocrit 25.3 % (42.0-52.0); Hemoglobin 7.6 g/dL (14.0-18.0); Mean Corpuscular Hemoglobin 24.9 pg (27.0-31.0); Platelet Count 261 10x3/uL (130-400); RBC Distribution Width 17.2 % (11.5-14.5); Red Blood Cell (RBC) Count 3.05 mill/uL (4.70-6.10)
[2023-11-22 05:30] LABS: Anion Gap 9 mmol/L (10-20); BUN (Urea Nitrogen) 10 mg/dL (8.4-25.7); Calc. Creatinine Clearance 126 mL/min (70-130); Calcium 7.4 mg/dL (7.8-10.44); Carbon Dioxide 35 mmol/L (23-31); Chloride 91 mmol/L (98-107); Estimated GFR 99; Glucose 92 mg/dL (83-110); Potassium 4.2 mmol/L (3.5-5.1); Sodium 131 mmol/L (136-145)
[2023-11-22] MEDS: Potassium Chloride 20 MEQ TAB PO SCH (09:23)
[2023-11-22] MEDS: Ferrous Sulfate 325 MG TAB PO SCH (09:27)
[2023-11-22] MEDS: Furosemide 40 MG TAB PO SCH (09:28)
[2023-11-22] MEDS: Aspirin 325 MG TAB PO SCH (09:29)
[2023-11-22] MEDS: Empagliflozin 10 MG TAB PO SCH (09:30)
[2023-11-22] MEDS: Magnesium Oxide 400 MG TAB PO SCH (09:30)
[2023-11-22] MEDS: Folic Acid 1 MG TAB PO SCH (09:30)
[2023-11-22] MEDS ORDERED: Loperamide HCl 2 MG CAP PO PRN (11:02)
[2023-11-23] MEDS: Calcium Carbonate 500 MG ChewTAB PO PRN (20:45)
[2023-11-23] MEDS: Fluticasone Propionate Nasal Spray 16 gm Bottle NASAL SCH (21:34)
[2023-11-24] MEDS ORDERED: Lidocaine 1% PF 5 ML VIAL ONE (12:54)
[2023-11-24] MEDS ORDERED: Sodium Bicarbonate 2.5 MEQ/5 ML SDV ONE (12:54)
[2023-11-24] MEDS ORDERED: Iopamidol 30 ML ONE (13:33)
[2023-11-24] MEDS: cefTRIAXone\\ROCEPHIN 2 GM in Sodium Chloride 0.9% 100 ML IVPB SCH (14:16)
[2023-11-24 16:44] VITALS: BMI 23.6
[2023-11-25 03:17] VITALS: BMI 23.6
[2023-11-25 04:20] LABS: Adenovirus F 40-41 Not Detected (Not Detected); Astrovirus Not Detected (Not Detected); C. difficile toxin A+B Not Detected (Not Detected); Campylobacter by PCR Not Detected (Not Detected); Cryptosporidium Not Detected (Not Detected); Cyclospora cayetanensis Not Detected (Not Detected); Entamoeba histolytica Not Detected (Not Detected); Enteroaggregative E. coli Not Detected (Not Detected); Enteropathogenic E. coli Not Detected (Not Detected); Enterotoxigenic E. coli Not Detected (Not Detected); Giardia lamblia DETECTED (Not Detected); Norovirus GI-GII DETECTED (Not Detected); Plesiomonas shigelloides Not Detected (Not Detected); Rotavirus A Not Detected (Not Detected); Salmonella Not Detected (Not Detected); Sapovirus Not Detected (Not Detected); Shiga-toxin-producing E coli Not Detected (Not Detected); Shigella/Enteroinvasive E coli Not Detected (Not Detected); Vibrio Not Detected (Not Detected); Vibrio cholerae Not Detected (Not Detected); Yersinia enterocolitica Not Detected (Not Detected)
[2023-11-25 08:48] VITALS: TEMP 97.5
[2023-11-25 16:29] VITALS: BP 124/65
[2023-11-26 15:15] LABS: Norovirus GI Negative (Negative); Norovirus GII Negative (Negative)
== END 2023-11-25 17:00 | disposition home or self-care (01) | DRG 690 ==
LOC: MSONC 18:15 → INTOOBSV 18:15 → OBSVTOIN 11-20 08:05
PROVIDERS: ADMIT Internal Medicine; ATTEND Internal Medicine
PROC: 02HV33Z Insertion of Infusion Device into Superior Vena Cava, Percutaneous Approach (ICD-10-PCS; principal; 2023-11-24)
PROC: B518ZZA Fluoroscopy of Superior Vena Cava, Guidance (ICD-10-PCS; 2023-11-24)
DX: N39.0 Urinary tract infection, site not specified (principal); I50.22 Chronic systolic (congestive) heart failure; J96.11 Chronic respiratory failure with hypoxia; C91.10 Chronic lymphocytic leukemia of B-cell type not having achieved remission; E87.1 Hypo-osmolality and hyponatremia; L03.115 Cellulitis of right lower limb; I11.0 Hypertensive heart disease with heart failure; E11.9 Type 2 diabetes mellitus without complications; I48.91 Unspecified atrial fibrillation; E87.6 Hypokalemia; B96.20 Unspecified Escherichia coli [E. coli] as the cause of diseases classified elsewhere; D63.8 Anemia in other chronic diseases classified elsewhere; K59.01 Slow transit constipation; Z79.899 Other long term (current) drug therapy; Z79.82 Long term (current) use of aspirin; Z99.81 Dependence on supplemental oxygen; Z79.4 Long term (current) use of insulin; K59.00 Constipation, unspecified; R53.1 Weakness; R62.7 Adult failure to thrive; I50.9 Heart failure, unspecified; K21.9 Gastro-esophageal reflux disease without esophagitis
CPT/HCPCS: 36415; 36416; 36569; 74022; 76937; 77001; 80048; 80053; 81001; 83605; 83630; 83735; 85025; 87040; 87070; 87077; 87086; 87149; 87186; 87205; 87507; 87798; 93005; 96372; 96374; 96375; 96376; 97139; C1751; G0378; J0696; J1644; J2543; J3475; J3480; J3490; Q9967

== ENCOUNTER 2023-11-26 11:59 | Observation (INO) | payer MEDICARE ==
[2023-11-26] MEDS ORDERED: Furosemide 40 MG (4 mL) VIAL ONE (12:29)
[2023-11-26 12:36] LABS: #Basophils Less than 0.03 10x3/uL (0.0-0.2); #Eosinphils Less than 0.03 10x3/uL (0.0-0.7); %Basophils 0.1 % (0.0-1.0); %Eosinophils 0.1 % (0.0-10.0); %Lymphocytes 17.2 % (21.0-51.0); %Neutrophils 73.2 % (42.0-75.0); Hematocrit 25.9 % (42.0-52.0); Mean Corpuscular HGB CONC 30.9 g/dL (32.0-36.0); Mean Corpuscular Hemoglobin 25.6 pg (27.0-31.0); Mean Corpuscular Volume 82.7 fL (78.0-98.0); Mean Platelet Volume 10.2 fL (7.4-10.4); Platelet Count 263 10x3/uL (130-400); RBC Distribution Width 17.9 % (11.5-14.5); Red Blood Cell (RBC) Count 3.13 mill/uL (4.70-6.10)
[2023-11-26 12:51] LABS: ALT (SGPT) Less than 5 U/L (8-55); AST (SGOT) 15 U/L (5-34); Alkaline Phosphatase 73 U/L (40-110); Anion Gap 10 mmol/L (10-20); BUN (Urea Nitrogen) 15 mg/dL (8.4-25.7); Bilirubin, Total 0.3 mg/dL (0.2-1.2); Calc. Creatinine Clearance 0 mL/min (70-130); Calcium 7.9 mg/dL (7.8-10.44); Carbon Dioxide 31 mmol/L (23-31); Chloride 94 mmol/L (98-107); Estimated GFR 100; Globulin 3.7 g/dL (2.4-3.5); Glucose 103 mg/dL (83-110); Protein, Total 5.7 g/dL (5.8-8.1); Sodium 130 mmol/L (136-145)
[2023-11-26 12:56] LABS: Troponin I Less than 0.010 ng/mL (< 0.028)
[2023-11-26] MEDS ORDERED: Ondansetron PF 4 MG/2 ML Vial IVP PRN (13:55)
[2023-11-26] MEDS ORDERED: Acetaminophen 325 MG TAB PO PRN (13:55)
[2023-11-26] MEDS ORDERED: Ondansetron ODT 4 MG TAB PO PRN (13:55)
[2023-11-26] MEDS ORDERED: HYDROcodone/Acetaminophen 5/325 mg Tablet PO PRN (13:55)
[2023-11-26] MEDS: Vancomycin (BATCH) 2 GM in Premix 1 BAG IVPB SCH (16:47)
[2023-11-26] MEDS ORDERED: LevoFLOXacin 750 mg/D5W 150 ml Premix Bag ONE (16:53)
[2023-11-26] MEDS: Carvedilol 6.25 MG TAB PO SCH (17:34)
[2023-11-26] MEDS: LevoFLOXacin 750 mg/D5W 750 MG in Premix 1 BAG IVPB SCH (17:34)
[2023-11-26] MEDS ORDERED: Carvedilol 25 MG TAB ONE (17:35)
[2023-11-26] MEDS ORDERED: Furosemide 40 MG TAB PO SCH (21:00)
[2023-11-26] MEDS: Cefepime 2 GM in Sodium Chloride 0.9% 100 ML IVPB SCH (21:48)
[2023-11-26] MEDS: Furosemide 40 MG (4 mL) VIAL SLOW IVP SCH (21:49)
[2023-11-26] MEDS: Heparin 5,000 UNITS/ML VIAL SC SCH (21:49)
[2023-11-26] MEDS: Lisinopril 5 MG TAB PO SCH (23:12)
[2023-11-27 01:36] VITALS: BMI 26.5
[2023-11-27 04:55] LABS: #Basophils 0.03 10x3/uL (0.0-0.2); %Basophils 0.3 % (0.0-1.0); %Eosinophils 0.8 % (0.0-10.0); %Lymphocytes 21.6 % (21.0-51.0); %Monocytes 13.9 % (0.0-10.0); %Neutrophils 62.7 % (42.0-75.0); Hematocrit 25.8 % (42.0-52.0); Mean Corpuscular Hemoglobin 24.9 pg (27.0-31.0); Mean Corpuscular Volume 80.4 fL (78.0-98.0); Platelet Count 263 10x3/uL (130-400); RBC Distribution Width 18.2 % (11.5-14.5); Red Blood Cell (RBC) Count 3.21 mill/uL (4.70-6.10)
[2023-11-27 05:14] LABS: Anion Gap 16 mmol/L (10-20); BUN (Urea Nitrogen) 12 mg/dL (8.4-25.7); Calc. Creatinine Clearance 144 mL/min (70-130); Calcium 7.6 mg/dL (7.8-10.44); Carbon Dioxide 29 mmol/L (23-31); Chloride 93 mmol/L (98-107); Estimated GFR 100; Glucose 79 mg/dL (83-110); Potassium 4.3 mmol/L (3.5-5.1); Sodium 134 mmol/L (136-145)
[2023-11-27] MEDS: Aspirin 325 MG TAB PO SCH (08:49)
[2023-11-27] MEDS: Magnesium Oxide 400 MG TAB PO SCH (08:50)
[2023-11-27] MEDS: Empagliflozin 10 MG TAB PO SCH (08:50)
[2023-11-27] MEDS: Ferrous Sulfate 325 MG TAB PO SCH (08:51)
[2023-11-27] MEDS: Polyethylene Glycol 3350 17 GM Packet PO SCH (08:51)
[2023-11-27] MEDS: Potassium Chloride 20 MEQ TAB PO SCH (08:51)
[2023-11-27] MEDS ORDERED: Furosemide 40 MG TAB PO SCH (09:00)
[2023-11-27] MEDS: cefTRIAXone\\ROCEPHIN 2 GM in Sodium Chloride 0.9% 100 ML IVPB SCH (15:34)
[2023-11-27] MEDS ORDERED: LevoFLOXacin 750 mg/D5W 750 MG in Premix 1 BAG IVPB SCH (17:00)
[2023-11-27 19:38] VITALS: BP 134/61; TEMP 98.5
== END 2023-11-27 20:10 ==
LOC: ERS 11:59 → ERHOLD 14:21 → 2SE 19:19
PROVIDERS: ADMIT Hospitalist; ATTEND Internal Medicine
DX: J96.21 Acute and chronic respiratory failure with hypoxia (principal); J98.11 Atelectasis; I11.0 Hypertensive heart disease with heart failure; I50.23 Acute on chronic systolic (congestive) heart failure; N39.0 Urinary tract infection, site not specified; B96.20 Unspecified Escherichia coli [E. coli] as the cause of diseases classified elsewhere; D72.829 Elevated white blood cell count, unspecified; E87.1 Hypo-osmolality and hyponatremia; R78.81 Bacteremia; B95.1 Streptococcus, group B, as the cause of diseases classified elsewhere; E11.9 Type 2 diabetes mellitus without complications; I48.0 Paroxysmal atrial fibrillation; Z79.899 Other long term (current) drug therapy; Z90.89 Acquired absence of other organs
CPT/HCPCS: 71045; 71250; 80048; 80053; 82962; 83605; 83880; 84484; 85025 ×2; 87040; 87804 ×2; 93005; 96365; 96366; 96375; 99285; J0692 ×2; J0696; J1644 ×2; J1940 ×2; J1956; J3370; J3490 ×2; 36415; 36416; 96376; G0378